=== PATIENT | male | born 1935 | race Caucasian/White ===

== ENCOUNTER 2017-01-20 10:38 | Outpatient (CLI) | payer MEDICARE, BC ==
--- NOTE | 2017-01-20 11:46 | RAD ---
CERVICAL SPINE 5 VIEWS: HISTORY: Chronic neck pain. 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 No fracture, subluxation, or bon y destruction is seen. If there is concern for radiculopathy or myelopathy, further evaluation with MRI should be performed . POS: SPEEDY
== END 2017-01-20 10:39 | disposition home or self-care (01) ==
LOC: MADRAD 10:38
PROVIDERS: ATTEND Family Medicine
DX: M54.2 Cervicalgia (principal); M47.812 Spondylosis without myelopathy or radiculopathy, cervical region
CPT/HCPCS: 72050

== ENCOUNTER 2017-01-30 10:32 | Outpatient (CLI) | payer MEDICARE, BC ==
[2017-01-30 11:42] LABS: #Basophils 0.2 thou/uL (0.0-0.2); #Eosinphils 0.2 thou/uL (0.0-0.7); #Lymphocytes 1.8 thou/uL (1.20-3.40); #Monocytes 0.6 thou/uL (0.11-0.59); #Neutrophils 5.2 thou/uL (1.40-6.50); %Basophils 2.5 % (0.0-1.0); %Eosinophils 2.9 % (0.0-10.0); %Lymphocytes 22.2 % (21.0-51.0); %Neutrophils 65.4 % (42.0-75.0); ALT (SGPT) 18 U/L (0-55); AST (SGOT) 21 U/L (5-34); Albumin 4.1 g/dL (3.4-4.8); Alkaline Phosphatase 86 U/L (40-150); Anion Gap 17 mmol/L (10-20); BUN (Urea Nitrogen) 34 mg/dL (8.4-25.7); Bilirubin, Total 0.3 mg/dL (0.2-1.2); Calc. Creatinine Clearance 0 mL/min (70-130); Calcium 9.9 mg/dL (7.8-10.44); Carbon Dioxide 24 mmol/L (23-31); Chloride 103 mmol/L (98-107); Estimated GFR-MDRD 34; Globulin 2.6 g/dL (2.4-3.5); Glucose 78 mg/dL (83-110); Hemoglobin 13.8 g/dL (14.0-18.0); Mean Corpuscular Hemoglobin 28.2 pg (27.0-31.0); Mean Corpuscular Volume 88.1 fl (80.0-94.0); Mean Platelet Volume 8.4 fL (7.4-10.4); Platelet Count 214 thou/uL (130-400); Potassium 4.5 mmol/L (3.5-5.1); Protein, Total 6.7 g/dL (5.8-8.1); RBC Distribution Width 15.1 % (11.5-14.5); Red Blood Cell (RBC) Count 4.89 mill/uL (4.70-6.10); Sodium 139 mmol/L (136-145)
[2017-01-30 12:03] LABS: Free T4 (Free Thyroxine) 0.96 ng/dL (0.70-1.48)
== END 2017-01-30 10:33 ==
LOC: MADLABBHPM 10:32
PROVIDERS: ATTEND Internal Medicine Cardiovascular Disease
DX: I10 Essential (primary) hypertension (principal)
CPT/HCPCS: 36415; 80053; 84439; 84443; 85025

== ENCOUNTER 2017-04-27 11:21 | Outpatient (CLI) | payer MEDICARE, BC ==
[2017-04-27 12:05] LABS: Anion Gap 16 mmol/L (10-20); BUN (Urea Nitrogen) 39 mg/dL (8.4-25.7); Calc. Creatinine Clearance 0 mL/min (70-130); Carbon Dioxide 23 mmol/L (23-31); Chloride 102 mmol/L (98-107); Estimated GFR-MDRD 34; Glucose 90 mg/dL (83-110); Potassium 4.7 mmol/L (3.5-5.1); Sodium 136 mmol/L (136-145)
== END 2017-04-27 11:22 | disposition home or self-care (01) ==
LOC: MADLAB 11:21
PROVIDERS: ATTEND Internal Medicine Nephrology
DX: I12.9 Hypertensive chronic kidney disease with stage 1 through stage 4 chronic kidney disease, or unspecified chronic kidney disease (principal); N18.3 Chronic kidney disease, stage 3 (moderate); Q61.9 Cystic kidney disease, unspecified
CPT/HCPCS: 36415; 80048

== ENCOUNTER 2018-03-19 11:32 | Outpatient (CLI) | payer MEDICARE, BC ==
[2018-03-19 12:57] LABS: Albumin 4.2 g/dL (3.4-4.8); Anion Gap 14 mmol/L (10-20); BUN (Urea Nitrogen) 28 mg/dL (8.4-25.7); Calc. Creatinine Clearance 0 mL/min (70-130); Calcium 9.9 mg/dL (7.8-10.44); Carbon Dioxide 24 mmol/L (23-31); Chloride 106 mmol/L (98-107); Estimated GFR-MDRD 28; Glucose 85 mg/dL (83-110); Phosphorus 3.2 mg/dL (2.3-4.7); Potassium 4.9 mmol/L (3.5-5.1); Sodium 139 mmol/L (136-145)
[2018-03-19 16:53] LABS: Creatinine, Urine 140.13 mg/dL (63-166)
== END 2018-03-19 11:33 | disposition home or self-care (01) ==
LOC: MADLAB 11:32
PROVIDERS: ATTEND Internal Medicine Nephrology
DX: I12.9 Hypertensive chronic kidney disease with stage 1 through stage 4 chronic kidney disease, or unspecified chronic kidney disease (principal); N18.3 Chronic kidney disease, stage 3 (moderate); N25.81 Secondary hyperparathyroidism of renal origin
CPT/HCPCS: 36415; 80048; 82040; 82570; 83970; 84100; 84156

== ENCOUNTER 2018-08-23 11:23 | Outpatient (CLI) | payer MEDICARE, BC ==
[2018-08-23 11:54] LABS: Anion Gap 14 mmol/L (10-20); BUN (Urea Nitrogen) 33 mg/dL (8.4-25.7); Calc. Creatinine Clearance 0 mL/min (70-130); Calcium 10.4 mg/dL (7.8-10.44); Carbon Dioxide 25 mmol/L (23-31); Chloride 104 mmol/L (98-107); Estimated GFR-MDRD 25; Glucose 100 mg/dL (83-110); Potassium 5.1 mmol/L (3.5-5.1); Sodium 138 mmol/L (136-145)
== END 2018-08-23 11:24 | disposition home or self-care (01) ==
LOC: MADLAB 11:23
PROVIDERS: ATTEND Internal Medicine Nephrology
DX: I12.9 Hypertensive chronic kidney disease with stage 1 through stage 4 chronic kidney disease, or unspecified chronic kidney disease (principal); N18.4 Chronic kidney disease, stage 4 (severe); N25.81 Secondary hyperparathyroidism of renal origin
CPT/HCPCS: 36415; 80048; 83970

== ENCOUNTER 2019-04-26 20:18 | Emergency (ER) | payer MEDICARE, BC ==
[2019-04-26] MEDS ORDERED: Fleet Enema 133 ML BOT ONE (20:40)
== END 2019-04-26 20:55 | disposition home or self-care (01) ==
LOC: MADERS 20:18
DX: K56.41 Fecal impaction (principal); K59.00 Constipation, unspecified; J44.9 Chronic obstructive pulmonary disease, unspecified; I10 Essential (primary) hypertension; E78.5 Hyperlipidemia, unspecified; F17.210 Nicotine dependence, cigarettes, uncomplicated; Z79.52 Long term (current) use of systemic steroids
CPT/HCPCS: 99283

== ENCOUNTER 2020-09-07 11:15 | Outpatient (CLI) | payer MEDICARE, BC ==
--- NOTE | 2020-09-07 11:50 | RAD ---
XR Ankle Rt 3 View STANDARD History: Ankle pain Comparison: None. Findings: Mild vascular calcifications. Moderate plantar heel spur. Moderate bimalleolar soft tissue swelling. No acute displaced fracture. Old osteochondral defect medial talar dome. Impression: 1. Bimalleolar soft tissue swelling without acute fracture or malalignment. 2. Punctate radiopacities projecting over the forefoot incompletely evaluated.
== END 2020-09-07 11:16 | disposition home or self-care (01) ==
LOC: MADRAD 11:15
PROVIDERS: ATTEND Family Medicine
DX: M79.604 Pain in right leg (principal); M79.89 Other specified soft tissue disorders

== ENCOUNTER 2021-01-03 09:40 | Emergency (ER) | payer MEDICARE, BC ==
[2021-01-03 10:33] LABS: #Basophils 0.1 thou/uL (0.0-0.2); #Eosinphils 0.2 thou/uL (0.0-0.7); #Lymphocytes 1.4 thou/uL (1.20-3.40); #Monocytes 0.4 thou/uL (0.11-0.59); %Basophils 1.6 % (0.0-1.0); %Eosinophils 3.2 % (0.0-10.0); %Lymphocytes 19.5 % (21.0-51.0); %Monocytes 5.9 % (0.0-10.0); %Neutrophils 69.8 % (42.0-75.0); Mean Corpuscular Hemoglobin 31.4 pg (27.0-31.0); Mean Corpuscular Volume 98.1 fL (78.0-98.0); Mean Platelet Volume 7.4 fL (7.4-10.4); Platelet Count 198 thou/uL (130-400); RBC Distribution Width 14.3 % (11.5-14.5); Red Blood Cell (RBC) Count 4.47 mill/uL (4.70-6.10); White Blood Cell (WBC) Count 7.2 thou/uL (4.8-10.8)
[2021-01-03 10:48] LABS: ALT (SGPT) 23 U/L (8-55); AST (SGOT) 27 U/L (5-34); Albumin 3.9 g/dL (3.4-4.8); Alkaline Phosphatase 68 U/L (40-110); Anion Gap 15 mmol/L (10-20); BUN (Urea Nitrogen) 29 mg/dL (8.4-25.7); Bilirubin, Total 0.5 mg/dL (0.2-1.2); Calc. Creatinine Clearance 0 mL/min (70-130); Calcium 9.8 mg/dL (7.8-10.44); Carbon Dioxide 22 mmol/L (23-31); Chloride 104 mmol/L (98-107); Globulin 2.6 g/dL (2.4-3.5); Glucose 92 mg/dL (83-110); Potassium 5.1 mmol/L (3.5-5.1); Protein, Total 6.5 g/dL (5.8-8.1); Sodium 136 mmol/L (136-145)
[2021-01-03 11:23] LABS: CKMB 7.3 ng/mL (0-6.6)
[2021-01-03] MEDS ORDERED: Furosemide 40 MG/4 ML VIAL ONE (12:13)
== END 2021-01-03 12:30 | disposition left against medical advice (07) ==
LOC: MADERS 09:40
DX: I11.0 Hypertensive heart disease with heart failure (principal); I50.9 Heart failure, unspecified; J44.9 Chronic obstructive pulmonary disease, unspecified; E78.5 Hyperlipidemia, unspecified; Z79.899 Other long term (current) drug therapy
CPT/HCPCS: 71045; 71250; 80053; 82553; 83880; 84484; 85025; 93005; 96374; J1940

== ENCOUNTER 2021-03-11 09:48 | Outpatient (CLI) | payer MEDICARE, BC ==
[2021-03-11 21:45] LABS: SARS-CoV-2 PCR by NAA Not Detected (NotDetected)
== END 2021-03-11 09:49 | disposition home or self-care (01) ==
LOC: MADLAB 09:48
PROVIDERS: ATTEND Internal Medicine
DX: R10.84 Generalized abdominal pain (principal); K59.09 Other constipation
CPT/HCPCS: 87635; U0003; U0005

== ENCOUNTER 2021-11-01 08:25 | Emergency (ER) | payer MEDICARE, BC ==
[2021-11-01] MEDS ORDERED: Magnesium Citrate 300 ML BOT ONE (09:57)
[2021-11-01] MEDS ORDERED: Ondansetron ODT 4 MG TAB ONE (09:57)
== END 2021-11-01 10:30 | disposition home or self-care (01) ==
LOC: MADERS 08:25
DX: K59.00 Constipation, unspecified (principal); K31.84 Gastroparesis; I10 Essential (primary) hypertension; E78.5 Hyperlipidemia, unspecified; J43.9 Emphysema, unspecified; Z87.891 Personal history of nicotine dependence; Z79.82 Long term (current) use of aspirin; Z79.01 Long term (current) use of anticoagulants; Z79.899 Other long term (current) drug therapy
CPT/HCPCS: 74022; Q0162

== ENCOUNTER 2021-12-27 15:48 | Inpatient (IN) | payer MEDICARE, BC ==
[2021-12-27] MEDS ORDERED: Albuterol Sulfate 1.25 MG/3 ML NEB NEB PRN (18:12)
[2021-12-27] MEDS ORDERED: Furosemide 20 MG TAB PO PRN (18:12)
[2021-12-27] MEDS ORDERED: Mometasone/Formoterol 200/5 60 PUFF INH SCH (19:00)
[2021-12-27] MEDS ORDERED: Melatonin 3 MG TAB PO SCH (21:00)
[2021-12-27] MEDS: Atorvastatin Calcium 40 MG TAB PO SCH (21:06)
[2021-12-27] MEDS: Tamsulosin HCl 0.4 MG CAP PO SCH (21:06)
[2021-12-27] MEDS: Nicotine 21 MG PATCH TD SCH (21:06)
[2021-12-27] MEDS: Mometasone/Formoterol 200/5 60 PUFF INH SCH (21:17)
[2021-12-28] MEDS: Acetaminophen 325 MG TAB PO PRN ×3 (01:17→22:22)
[2021-12-28 08:38] LABS: #Basophils 0.1 thou/uL (0.0-0.2); #Eosinphils 0.2 thou/uL (0.0-0.7); #Lymphocytes 1.2 thou/uL (1.20-3.40); #Monocytes 0.6 thou/uL (0.11-0.59); #Neutrophils 5.3 thou/uL (1.40-6.50); %Basophils 1.5 % (0.0-1.0); %Eosinophils 2.6 % (0.0-10.0); %Lymphocytes 16.5 % (21.0-51.0); %Neutrophils 71.4 % (42.0-75.0); Hemoglobin 12.5 g/dL (14.0-18.0); Mean Corpuscular HGB CONC 31.9 g/dL (32.0-36.0); Mean Corpuscular Hemoglobin 28.3 pg (27.0-31.0); Mean Corpuscular Volume 88.5 fL (78.0-98.0); Mean Platelet Volume 6.2 fL (7.4-10.4); Platelet Count 351 thou/uL (130-400); RBC Distribution Width 15.3 % (11.5-14.5); Red Blood Cell (RBC) Count 4.42 mill/uL (4.70-6.10); White Blood Cell (WBC) Count 7.4 thou/uL (4.8-10.8)
[2021-12-28 09:02] LABS: Anion Gap 16 mmol/L (10-20); BUN (Urea Nitrogen) 36 mg/dL (8.4-25.7); Calc. Creatinine Clearance 22 mL/min (70-130); Calcium 9.6 mg/dL (7.8-10.44); Carbon Dioxide 27 mmol/L (23-31); Chloride 101 mmol/L (98-107); Glucose 105 mg/dL (83-110); Potassium 4.1 mmol/L (3.5-5.1); Sodium 140 mmol/L (136-145)
[2021-12-28] MEDS: Mometasone/Formoterol 200/5 60 PUFF INH SCH ×2 (09:27→20:57)
[2021-12-28] MEDS: Rivaroxaban 15 MG TAB PO SCH (09:28)
[2021-12-28] MEDS: Finasteride 5 MG TAB PO SCH (09:28)
[2021-12-28] MEDS: Aspirin 81 mg Enteric Coated Tablet PO SCH (09:28)
[2021-12-28] MEDS ORDERED: Loratadine 10 MG TAB PO SCH (17:00)
[2021-12-28] MEDS ORDERED: Pramipexole Di-HCl 0.25 MG TAB PO SCH (17:30)
[2021-12-28] MEDS: Pramipexole Di-HCl 0.25 MG TAB PO SCH (20:53)
[2021-12-28] MEDS: Melatonin 3 MG TAB PO PRN (20:54)
[2021-12-28] MEDS: Atorvastatin Calcium 40 MG TAB PO SCH (20:55)
[2021-12-28] MEDS: Tamsulosin HCl 0.4 MG CAP PO SCH (20:55)
[2021-12-28] MEDS: traZODone HCl 50 MG TAB PO SCH (20:56)
[2021-12-28] MEDS: Nicotine 21 MG PATCH TD SCH (20:58)
[2021-12-29] MEDS: Mometasone/Formoterol 200/5 60 PUFF INH SCH ×2 (08:02→20:36)
[2021-12-29] MEDS: Rivaroxaban 15 MG TAB PO SCH (08:05)
[2021-12-29] MEDS: Finasteride 5 MG TAB PO SCH (08:05)
[2021-12-29] MEDS: Pramipexole Di-HCl 0.25 MG TAB PO SCH ×2 (08:05→20:36)
[2021-12-29] MEDS: Aspirin 81 mg Enteric Coated Tablet PO SCH (08:05)
[2021-12-29] MEDS ORDERED: Loratadine 10 MG TAB PO SCH (09:00)
[2021-12-29] MEDS: Nicotine 21 MG PATCH TD SCH (20:35)
[2021-12-29] MEDS: Melatonin 3 MG TAB PO PRN (20:36)
[2021-12-29] MEDS: traZODone HCl 50 MG TAB PO SCH (20:36)
[2021-12-29] MEDS: Tamsulosin HCl 0.4 MG CAP PO SCH (20:36)
[2021-12-29] MEDS: Atorvastatin Calcium 40 MG TAB PO SCH (20:36)
[2021-12-30] MEDS: Acetaminophen 325 MG TAB PO PRN (00:22)
[2021-12-30] MEDS: Mometasone/Formoterol 200/5 60 PUFF INH SCH ×2 (08:09→20:10)
[2021-12-30] MEDS: Aspirin 81 mg Enteric Coated Tablet PO SCH (08:10)
[2021-12-30] MEDS: Rivaroxaban 15 MG TAB PO SCH (08:10)
[2021-12-30] MEDS: Finasteride 5 MG TAB PO SCH (08:11)
[2021-12-30] MEDS: Loratadine 10 MG TAB PO SCH (08:11)
[2021-12-30] MEDS: Pramipexole Di-HCl 0.25 MG TAB PO SCH ×2 (08:11→20:11)
[2021-12-30] MEDS: Calcitriol 0.25 MCG CAP PO SCH (12:44)
[2021-12-30] MEDS: Atorvastatin Calcium 40 MG TAB PO SCH (20:10)
[2021-12-30] MEDS: Tamsulosin HCl 0.4 MG CAP PO SCH (20:10)
[2021-12-30] MEDS: Nicotine 21 MG PATCH TD SCH (20:11)
[2021-12-30] MEDS: traZODone HCl 50 MG TAB PO SCH (20:11)
[2021-12-31] MEDS: Finasteride 5 MG TAB PO SCH (08:38)
[2021-12-31] MEDS: Aspirin 81 mg Enteric Coated Tablet PO SCH (08:38)
[2021-12-31] MEDS: Rivaroxaban 15 MG TAB PO SCH (08:39)
[2021-12-31] MEDS: Mometasone/Formoterol 200/5 60 PUFF INH SCH ×2 (08:41→20:32)
[2021-12-31] MEDS: Acetaminophen 325 MG TAB PO PRN (11:39)
[2021-12-31] MEDS: Melatonin 3 MG TAB PO PRN (20:28)
[2021-12-31] MEDS: Tamsulosin HCl 0.4 MG CAP PO SCH (20:29)
[2021-12-31] MEDS: Pramipexole Di-HCl 0.25 MG TAB PO SCH (20:30)
[2021-12-31] MEDS: traZODone HCl 50 MG TAB PO SCH (20:31)
[2021-12-31] MEDS: Atorvastatin Calcium 40 MG TAB PO SCH (20:31)
[2021-12-31] MEDS: Nicotine 21 MG PATCH TD SCH (20:32)
[2022-01-01] MEDS: Acetaminophen 325 MG TAB PO PRN (08:45)
[2022-01-01] MEDS: Rivaroxaban 15 MG TAB PO SCH (08:47)
[2022-01-01] MEDS: Mometasone/Formoterol 200/5 60 PUFF INH SCH ×2 (08:47→21:25)
[2022-01-01] MEDS: Loratadine 10 MG TAB PO SCH (08:47)
[2022-01-01] MEDS: Finasteride 5 MG TAB PO SCH (08:47)
[2022-01-01] MEDS: Aspirin 81 mg Enteric Coated Tablet PO SCH (08:47)
[2022-01-01] MEDS: Pramipexole Di-HCl 0.25 MG TAB PO SCH (21:23)
[2022-01-01] MEDS: traZODone HCl 50 MG TAB PO SCH (21:24)
[2022-01-01] MEDS: Nicotine 21 MG PATCH TD SCH (21:25)
[2022-01-01] MEDS: Atorvastatin Calcium 40 MG TAB PO SCH (21:25)
[2022-01-01] MEDS: Tamsulosin HCl 0.4 MG CAP PO SCH (21:25)
[2022-01-01] MEDS: traZODone HCl 50 MG TAB PO PRN (22:43)
[2022-01-02] MEDS: Loratadine 10 MG TAB PO SCH (08:31)
[2022-01-02] MEDS: Aspirin 81 mg Enteric Coated Tablet PO SCH (08:31)
[2022-01-02] MEDS: Finasteride 5 MG TAB PO SCH (08:32)
[2022-01-02] MEDS: Rivaroxaban 15 MG TAB PO SCH (08:32)
[2022-01-02] MEDS: Mometasone/Formoterol 200/5 60 PUFF INH SCH ×2 (08:34→21:26)
[2022-01-02 15:40] LABS: SARS-CoV-2 PCR by NAA Not Detected (NotDetected)
[2022-01-02] MEDS: Tamsulosin HCl 0.4 MG CAP PO SCH (21:24)
[2022-01-02] MEDS: traZODone HCl 50 MG TAB PO SCH (21:24)
[2022-01-02] MEDS: Atorvastatin Calcium 40 MG TAB PO SCH (21:24)
[2022-01-02] MEDS: Pramipexole Di-HCl 0.25 MG TAB PO SCH (21:24)
[2022-01-02] MEDS: Nicotine 21 MG PATCH TD SCH (21:26)
[2022-01-02] MEDS: Melatonin 3 MG TAB PO PRN (21:34)
[2022-01-02] MEDS: Acetaminophen 325 MG TAB PO PRN (23:27)
[2022-01-03] MEDS: Mometasone/Formoterol 200/5 60 PUFF INH SCH ×2 (08:09→21:35)
[2022-01-03] MEDS: Rivaroxaban 15 MG TAB PO SCH (08:10)
[2022-01-03] MEDS: Finasteride 5 MG TAB PO SCH (08:10)
[2022-01-03] MEDS: Aspirin 81 mg Enteric Coated Tablet PO SCH (08:10)
[2022-01-03] MEDS: Loratadine 10 MG TAB PO SCH (08:10)
[2022-01-03] MEDS: Calcitriol 0.25 MCG CAP PO SCH (11:55)
[2022-01-03] MEDS: Acetaminophen 325 MG TAB PO PRN ×2 (14:14→23:27)
[2022-01-03] MEDS: Pramipexole Di-HCl 0.25 MG TAB PO SCH (21:33)
[2022-01-03] MEDS: Tamsulosin HCl 0.4 MG CAP PO SCH (21:34)
[2022-01-03] MEDS: Nicotine 21 MG PATCH TD SCH (21:34)
[2022-01-03] MEDS: Atorvastatin Calcium 40 MG TAB PO SCH (21:34)
[2022-01-03] MEDS: traZODone HCl 50 MG TAB PO SCH (21:34)
[2022-01-03] MEDS: traZODone HCl 50 MG TAB PO PRN (23:28)
[2022-01-04 05:24] LABS: Hemoglobin 11.3 g/dL (14.0-18.0); Mean Corpuscular HGB CONC 31.8 g/dL (32.0-36.0); Mean Corpuscular Hemoglobin 28.1 pg (27.0-31.0); Mean Corpuscular Volume 88.4 fL (78.0-98.0); Mean Platelet Volume 5.9 fL (7.4-10.4); Platelet Count 388 thou/uL (130-400); RBC Distribution Width 16.2 % (11.5-14.5); Red Blood Cell (RBC) Count 4.02 mill/uL (4.70-6.10); White Blood Cell (WBC) Count 8.4 thou/uL (4.8-10.8)
[2022-01-04] MEDS: Finasteride 5 MG TAB PO SCH (08:59)
[2022-01-04] MEDS: Acetaminophen 325 MG TAB PO PRN ×2 (08:59→23:48)
[2022-01-04] MEDS: Mometasone/Formoterol 200/5 60 PUFF INH SCH ×2 (09:00→20:51)
[2022-01-04] MEDS: Rivaroxaban 15 MG TAB PO SCH (09:00)
[2022-01-04] MEDS: Aspirin 81 mg Enteric Coated Tablet PO SCH (09:00)
[2022-01-04] MEDS: Melatonin 3 MG TAB PO PRN (20:47)
[2022-01-04] MEDS: Atorvastatin Calcium 40 MG TAB PO SCH (20:47)
[2022-01-04] MEDS: Pramipexole Di-HCl 0.25 MG TAB PO SCH (20:47)
[2022-01-04] MEDS: traZODone HCl 50 MG TAB PO SCH (20:48)
[2022-01-04] MEDS: Tamsulosin HCl 0.4 MG CAP PO SCH (20:48)
[2022-01-04] MEDS: FLUOCINOLONE 0.01% R EAR SCH (20:53)
[2022-01-04] MEDS: Nicotine 21 MG PATCH TD SCH (21:29)
[2022-01-05] MEDS: Loratadine 10 MG TAB PO SCH (08:31)
[2022-01-05] MEDS: Finasteride 5 MG TAB PO SCH (08:31)
[2022-01-05] MEDS: Rivaroxaban 15 MG TAB PO SCH (08:31)
[2022-01-05] MEDS: Aspirin 81 mg Enteric Coated Tablet PO SCH (08:31)
[2022-01-05] MEDS: FLUOCINOLONE 0.01% R EAR SCH ×2 (08:32→20:14)
[2022-01-05] MEDS: Mometasone/Formoterol 200/5 60 PUFF INH SCH ×2 (08:32→20:10)
[2022-01-05] MEDS: Acetaminophen 325 MG TAB PO PRN (08:41)
[2022-01-05] MEDS: Pramipexole Di-HCl 0.25 MG TAB PO SCH (20:11)
[2022-01-05] MEDS: traZODone HCl 50 MG TAB PO SCH (20:12)
[2022-01-05] MEDS: Nicotine 21 MG PATCH TD SCH (20:13)
[2022-01-05] MEDS: Tamsulosin HCl 0.4 MG CAP PO SCH (20:20)
[2022-01-06 05:29] LABS: #Basophils 0.1 thou/uL (0.0-0.2); #Eosinphils 0.1 thou/uL (0.0-0.7); #Lymphocytes 1.4 thou/uL (1.20-3.40); #Monocytes 0.5 thou/uL (0.11-0.59); #Neutrophils 5.9 thou/uL (1.40-6.50); %Basophils 1.3 % (0.0-1.0); %Eosinophils 1.7 % (0.0-10.0); %Lymphocytes 17.4 % (21.0-51.0); %Monocytes 5.7 % (0.0-10.0); %Neutrophils 73.8 % (42.0-75.0); Hemoglobin 11.9 g/dL (14.0-18.0); Mean Corpuscular HGB CONC 32.7 g/dL (32.0-36.0); Mean Corpuscular Hemoglobin 28.6 pg (27.0-31.0); Mean Corpuscular Volume 87.5 fL (78.0-98.0); Platelet Count 393 thou/uL (130-400); RBC Distribution Width 15.7 % (11.5-14.5); Red Blood Cell (RBC) Count 4.16 mill/uL (4.70-6.10)
[2022-01-06 05:42] LABS: Anion Gap 13 mmol/L (10-20); BUN (Urea Nitrogen) 20 mg/dL (8.4-25.7); Calc. Creatinine Clearance 28 mL/min (70-130); Calcium 9.6 mg/dL (7.8-10.44); Carbon Dioxide 22 mmol/L (23-31); Chloride 105 mmol/L (98-107); Glucose 89 mg/dL (83-110); Potassium 4.9 mmol/L (3.5-5.1); Sodium 135 mmol/L (136-145)
[2022-01-06] MEDS: Mometasone/Formoterol 200/5 60 PUFF INH SCH ×2 (08:13→20:48)
[2022-01-06] MEDS: Finasteride 5 MG TAB PO SCH (08:14)
[2022-01-06] MEDS: Rivaroxaban 15 MG TAB PO SCH (08:14)
[2022-01-06] MEDS: Aspirin 81 mg Enteric Coated Tablet PO SCH (08:14)
[2022-01-06] MEDS: FLUOCINOLONE 0.01% R EAR SCH ×2 (08:15→20:50)
[2022-01-06] MEDS: Calcitriol 0.25 MCG CAP PO SCH (13:12)
[2022-01-06] MEDS ORDERED: Fluticasone Propionate Nasal Spray 16 gm Bottle NASAL SCH (19:30)
[2022-01-06] MEDS: Pramipexole Di-HCl 0.25 MG TAB PO SCH (20:48)
[2022-01-06] MEDS: Nicotine 21 MG PATCH TD SCH (20:49)
[2022-01-06] MEDS: Tamsulosin HCl 0.4 MG CAP PO SCH (20:49)
[2022-01-06] MEDS: Atorvastatin Calcium 40 MG TAB PO SCH (20:49)
[2022-01-06] MEDS: traZODone HCl 50 MG TAB PO SCH (20:49)
[2022-01-06] MEDS: Acetaminophen 325 MG TAB PO PRN (22:53)
[2022-01-07] MEDS: Melatonin 3 MG TAB PO PRN (00:06)
[2022-01-07] MEDS: Acetaminophen 325 MG TAB PO PRN (08:27)
[2022-01-07] MEDS: Finasteride 5 MG TAB PO SCH (08:28)
[2022-01-07] MEDS: Rivaroxaban 15 MG TAB PO SCH (08:28)
[2022-01-07] MEDS: Fluticasone Propionate Nasal Spray 16 gm Bottle NASAL SCH ×2 (08:28→20:41)
[2022-01-07] MEDS: Loratadine 10 MG TAB PO SCH (08:28)
[2022-01-07] MEDS: Aspirin 81 mg Enteric Coated Tablet PO SCH (08:28)
[2022-01-07] MEDS: Mometasone/Formoterol 200/5 60 PUFF INH SCH ×2 (08:29→20:35)
[2022-01-07] MEDS: FLUOCINOLONE 0.01% R EAR SCH ×2 (08:29→20:44)
[2022-01-07] MEDS: Pramipexole Di-HCl 0.25 MG TAB PO SCH (20:34)
[2022-01-07] MEDS: Tamsulosin HCl 0.4 MG CAP PO SCH (20:36)
[2022-01-07] MEDS: Atorvastatin Calcium 40 MG TAB PO SCH (20:36)
[2022-01-07] MEDS: traZODone HCl 50 MG TAB PO SCH (20:36)
[2022-01-07] MEDS: Nicotine 21 MG PATCH TD SCH (20:44)
[2022-01-08] MEDS: Melatonin 3 MG TAB PO PRN (01:53)
[2022-01-08] MEDS: Acetaminophen 325 MG TAB PO PRN ×3 (01:53→22:37)
[2022-01-08] MEDS: Fluticasone Propionate Nasal Spray 16 gm Bottle NASAL SCH (08:29)
[2022-01-08] MEDS: Rivaroxaban 15 MG TAB PO SCH (08:29)
[2022-01-08] MEDS: Finasteride 5 MG TAB PO SCH (08:29)
[2022-01-08] MEDS: Aspirin 81 mg Enteric Coated Tablet PO SCH (08:29)
[2022-01-08] MEDS: FLUOCINOLONE 0.01% R EAR SCH ×2 (08:30→23:39)
[2022-01-08] MEDS: Mometasone/Formoterol 200/5 60 PUFF INH SCH ×2 (08:31→22:31)
[2022-01-08] MEDS: Nicotine 21 MG PATCH TD SCH ×3 (22:26→22:31)
[2022-01-08] MEDS: Pramipexole Di-HCl 0.25 MG TAB PO SCH (22:26)
[2022-01-08] MEDS: Atorvastatin Calcium 40 MG TAB PO SCH (22:26)
[2022-01-08] MEDS: traZODone HCl 50 MG TAB PO SCH (22:26)
[2022-01-08] MEDS: Tamsulosin HCl 0.4 MG CAP PO SCH (22:27)
[2022-01-09] MEDS: Acetaminophen 325 MG TAB PO PRN ×2 (06:13→14:02)
[2022-01-09] MEDS ORDERED: Pramipexole Di-HCl 0.25 MG TAB PO SCH (08:45)
[2022-01-09] MEDS: Rivaroxaban 15 MG TAB PO SCH (09:20)
[2022-01-09] MEDS: Finasteride 5 MG TAB PO SCH (09:20)
[2022-01-09] MEDS: Aspirin 81 mg Enteric Coated Tablet PO SCH (09:20)
[2022-01-09] MEDS: Mometasone/Formoterol 200/5 60 PUFF INH SCH ×2 (09:21→20:23)
[2022-01-09] MEDS: Loratadine 10 MG TAB PO SCH (09:21)
[2022-01-09] MEDS: Fluticasone Propionate Nasal Spray 16 gm Bottle NASAL SCH (09:21)
[2022-01-09] MEDS: FLUOCINOLONE 0.01% R EAR SCH ×2 (09:28→20:23)
[2022-01-09] MEDS: Pramipexole Di-HCl 0.25 MG TAB PO SCH (17:54)
[2022-01-09] MEDS: traZODone HCl 50 MG TAB PO SCH (20:22)
[2022-01-09] MEDS: Atorvastatin Calcium 40 MG TAB PO SCH (20:22)
[2022-01-09] MEDS: Nicotine 21 MG PATCH TD SCH (20:22)
[2022-01-09] MEDS: Tamsulosin HCl 0.4 MG CAP PO SCH (20:23)
[2022-01-09 23:39] LABS: SARS-CoV-2 PCR by NAA Not Detected (NotDetected)
[2022-01-10] MEDS: Mometasone/Formoterol 200/5 60 PUFF INH SCH ×2 (10:26→20:46)
[2022-01-10] MEDS: Rivaroxaban 15 MG TAB PO SCH (10:27)
[2022-01-10] MEDS: Finasteride 5 MG TAB PO SCH (10:27)
[2022-01-10] MEDS: Aspirin 81 mg Enteric Coated Tablet PO SCH (10:27)
[2022-01-10] MEDS: Fluticasone Propionate Nasal Spray 16 gm Bottle NASAL SCH (10:27)
[2022-01-10] MEDS: FLUOCINOLONE 0.01% R EAR SCH ×2 (10:28→20:45)
[2022-01-10] MEDS: Calcitriol 0.25 MCG CAP PO SCH (12:08)
[2022-01-10] MEDS: Pramipexole Di-HCl 0.25 MG TAB PO PRN (14:00)
[2022-01-10] MEDS: Pramipexole Di-HCl 0.25 MG TAB PO SCH (20:41)
[2022-01-10] MEDS: Atorvastatin Calcium 40 MG TAB PO SCH (20:42)
[2022-01-10] MEDS: Tamsulosin HCl 0.4 MG CAP PO SCH (20:42)
[2022-01-10] MEDS: traZODone HCl 50 MG TAB PO SCH (20:43)
[2022-01-10] MEDS: Nicotine 21 MG PATCH TD SCH (20:46)
[2022-01-10] MEDS: traZODone HCl 50 MG TAB PO PRN (21:20)
[2022-01-11] MEDS: Acetaminophen 325 MG TAB PO PRN ×2 (10:07→16:24)
[2022-01-11] MEDS: Rivaroxaban 15 MG TAB PO SCH (10:08)
[2022-01-11] MEDS: Finasteride 5 MG TAB PO SCH (10:08)
[2022-01-11] MEDS: Fluticasone Propionate Nasal Spray 16 gm Bottle NASAL SCH (10:09)
[2022-01-11] MEDS: Mometasone/Formoterol 200/5 60 PUFF INH SCH ×2 (10:09→20:37)
[2022-01-11] MEDS: Loratadine 10 MG TAB PO SCH (10:09)
[2022-01-11] MEDS: Aspirin 81 mg Enteric Coated Tablet PO SCH (10:09)
[2022-01-11] MEDS: FLUOCINOLONE 0.01% R EAR SCH ×2 (10:10→20:41)
[2022-01-11] MEDS: Pramipexole Di-HCl 0.25 MG TAB PO SCH (20:38)
[2022-01-11] MEDS: Tamsulosin HCl 0.4 MG CAP PO SCH (20:39)
[2022-01-11] MEDS: Atorvastatin Calcium 40 MG TAB PO SCH (20:39)
[2022-01-11] MEDS: traZODone HCl 50 MG TAB PO SCH (20:40)
[2022-01-11] MEDS: Nicotine 21 MG PATCH TD SCH (20:41)
[2022-01-12] MEDS: Fluticasone Propionate Nasal Spray 16 gm Bottle NASAL SCH (08:34)
[2022-01-12] MEDS: Mometasone/Formoterol 200/5 60 PUFF INH SCH ×2 (08:34→20:10)
[2022-01-12] MEDS: Loratadine 10 MG TAB PO SCH (08:36)
[2022-01-12] MEDS: Finasteride 5 MG TAB PO SCH (08:37)
[2022-01-12] MEDS: Rivaroxaban 15 MG TAB PO SCH (08:37)
[2022-01-12] MEDS: FLUOCINOLONE 0.01% R EAR SCH ×2 (08:37→20:12)
[2022-01-12] MEDS: Aspirin 81 mg Enteric Coated Tablet PO SCH (08:37)
[2022-01-12] MEDS: Pramipexole Di-HCl 0.25 MG TAB PO PRN (10:25)
[2022-01-12] MEDS: Mag-Al Plus 1200 MG/1200 MG/120 MG/30 ML UDCUP PO PRN (16:37)
[2022-01-12] MEDS: Pramipexole Di-HCl 0.25 MG TAB PO SCH (20:10)
[2022-01-12] MEDS: Atorvastatin Calcium 40 MG TAB PO SCH (20:11)
[2022-01-12] MEDS: Acetaminophen 325 MG TAB PO PRN (20:11)
[2022-01-12] MEDS: traZODone HCl 50 MG TAB PO SCH (20:11)
[2022-01-12] MEDS: Tamsulosin HCl 0.4 MG CAP PO SCH (20:12)
[2022-01-12] MEDS: Melatonin 3 MG TAB PO PRN (20:12)
[2022-01-12] MEDS: Nicotine 21 MG PATCH TD SCH (20:13)
[2022-01-13] MEDS: Fluticasone Propionate Nasal Spray 16 gm Bottle NASAL SCH (08:27)
[2022-01-13] MEDS: Loratadine 10 MG TAB PO SCH (08:27)
[2022-01-13] MEDS: Aspirin 81 mg Enteric Coated Tablet PO SCH (08:27)
[2022-01-13] MEDS: Rivaroxaban 15 MG TAB PO SCH (08:27)
[2022-01-13] MEDS: Finasteride 5 MG TAB PO SCH (08:27)
[2022-01-13] MEDS: Mometasone/Formoterol 200/5 60 PUFF INH SCH ×2 (08:28→20:45)
[2022-01-13] MEDS: FLUOCINOLONE 0.01% R EAR SCH (08:29)
[2022-01-13] MEDS: Calcitriol 0.25 MCG CAP PO SCH (12:17)
[2022-01-13] MEDS: Mag-Al Plus 1200 MG/1200 MG/120 MG/30 ML UDCUP PO PRN (15:51)
[2022-01-13] MEDS: Acetaminophen 325 MG TAB PO PRN (16:57)
[2022-01-13] MEDS ORDERED: Bisacodyl 10 MG SUPP PR PRN (17:06)
[2022-01-13] MEDS ORDERED: Calcitriol 0.25 MCG CAP PO SCH (18:00)
[2022-01-13] MEDS: traZODone HCl 50 MG TAB PO SCH (20:43)
[2022-01-13] MEDS: Tamsulosin HCl 0.4 MG CAP PO SCH (20:43)
[2022-01-13] MEDS: Senokot S 8.6-50 MG TAB PO SCH (20:43)
[2022-01-13] MEDS: Nicotine 21 MG PATCH TD SCH (20:44)
[2022-01-13] MEDS: Pramipexole Di-HCl 0.25 MG TAB PO SCH (20:44)
[2022-01-13] MEDS: Atorvastatin Calcium 40 MG TAB PO SCH (20:44)
[2022-01-13] MEDS: Melatonin 3 MG TAB PO PRN (20:51)
[2022-01-13 22:06] VITALS: BMI 21.2
[2022-01-14] MEDS ORDERED: Acetaminophen 325 MG TAB ONE (00:13)
[2022-01-14] MEDS: Acetaminophen 325 MG TAB PO PRN (00:15)
[2022-01-14] MEDS: Rivaroxaban 15 MG TAB PO SCH (08:58)
[2022-01-14] MEDS: Pramipexole Di-HCl 0.25 MG TAB PO SCH ×2 (08:59→20:29)
[2022-01-14] MEDS: Finasteride 5 MG TAB PO SCH (08:59)
[2022-01-14] MEDS: Senokot S 8.6-50 MG TAB PO SCH ×2 (08:59→20:31)
[2022-01-14] MEDS: Aspirin 81 mg Enteric Coated Tablet PO SCH (08:59)
[2022-01-14] MEDS: Mometasone/Formoterol 200/5 60 PUFF INH SCH ×2 (09:00→20:31)
[2022-01-14] MEDS: Fluticasone Propionate Nasal Spray 16 gm Bottle NASAL SCH (09:25)
[2022-01-14] MEDS: traMADol HCl 50 MG TAB PO PRN (17:27)
[2022-01-14] MEDS: Tamsulosin HCl 0.4 MG CAP PO SCH (20:29)
[2022-01-14] MEDS: Atorvastatin Calcium 40 MG TAB PO SCH (20:30)
[2022-01-14] MEDS: traZODone HCl 50 MG TAB PO SCH (20:30)
[2022-01-14] MEDS: Nicotine 21 MG PATCH TD SCH (20:31)
[2022-01-15] MEDS: Aspirin 81 mg Enteric Coated Tablet PO SCH (08:44)
[2022-01-15] MEDS: Pramipexole Di-HCl 0.25 MG TAB PO SCH ×2 (08:44→20:00)
[2022-01-15] MEDS: Loratadine 10 MG TAB PO SCH (08:44)
[2022-01-15] MEDS: Senokot S 8.6-50 MG TAB PO SCH ×2 (08:44→20:00)
[2022-01-15] MEDS: Rivaroxaban 15 MG TAB PO SCH (08:44)
[2022-01-15] MEDS: Finasteride 5 MG TAB PO SCH (08:44)
[2022-01-15] MEDS: Acetaminophen 325 MG TAB PO PRN ×2 (08:44→23:24)
[2022-01-15] MEDS: Fluticasone Propionate Nasal Spray 16 gm Bottle NASAL SCH (08:45)
[2022-01-15] MEDS: Mometasone/Formoterol 200/5 60 PUFF INH SCH ×2 (08:45→23:00)
[2022-01-15] MEDS ORDERED: Fleet Enema 133 ML BOT PR PRN (19:37)
[2022-01-15] MEDS: Nicotine 21 MG PATCH TD SCH (19:59)
[2022-01-15] MEDS: traZODone HCl 50 MG TAB PO SCH (20:00)
[2022-01-15] MEDS: Atorvastatin Calcium 40 MG TAB PO SCH (20:00)
[2022-01-15] MEDS: Tamsulosin HCl 0.4 MG CAP PO SCH (20:00)
[2022-01-15] MEDS: Milk Of Magnesia 30 ML UDCUP PO PRN (20:01)
[2022-01-16] MEDS: Senokot S 8.6-50 MG TAB PO SCH ×2 (08:13→21:16)
[2022-01-16] MEDS: Pramipexole Di-HCl 0.25 MG TAB PO SCH ×2 (08:13→21:16)
[2022-01-16] MEDS: Finasteride 5 MG TAB PO SCH (08:13)
[2022-01-16] MEDS: Aspirin 81 mg Enteric Coated Tablet PO SCH (08:13)
[2022-01-16] MEDS: Rivaroxaban 15 MG TAB PO SCH (08:13)
[2022-01-16] MEDS: Fluticasone Propionate Nasal Spray 16 gm Bottle NASAL SCH (08:14)
[2022-01-16] MEDS: Mometasone/Formoterol 200/5 60 PUFF INH SCH ×2 (08:14→21:16)
[2022-01-16 11:55] LABS: SARS-CoV-2 PCR by NAA Not Detected (NotDetected)
[2022-01-16 12:04] LABS: #Basophils 0.1 thou/uL (0.0-0.2); #Eosinphils 0.2 thou/uL (0.0-0.7); #Lymphocytes 1.1 thou/uL (1.20-3.40); #Monocytes 0.6 thou/uL (0.11-0.59); #Neutrophils 6.4 thou/uL (1.40-6.50); %Basophils 1.7 % (0.0-1.0); %Eosinophils 2.2 % (0.0-10.0); %Lymphocytes 12.7 % (21.0-51.0); %Neutrophils 76.3 % (42.0-75.0); Hemoglobin 11.6 g/dL (14.0-18.0); Mean Corpuscular HGB CONC 31.1 g/dL (32.0-36.0); Mean Corpuscular Hemoglobin 27.6 pg (27.0-31.0); Mean Corpuscular Volume 88.6 fL (78.0-98.0); Platelet Count 341 thou/uL (130-400); RBC Distribution Width 16.2 % (11.5-14.5); Red Blood Cell (RBC) Count 4.21 mill/uL (4.70-6.10); White Blood Cell (WBC) Count 8.4 thou/uL (4.8-10.8)
[2022-01-16 12:20] LABS: Anion Gap 13 mmol/L (10-20); BUN (Urea Nitrogen) 20 mg/dL (8.4-25.7); Calc. Creatinine Clearance 31 mL/min (70-130); Calcium 10.3 mg/dL (7.8-10.44); Carbon Dioxide 24 mmol/L (23-31); Chloride 101 mmol/L (98-107); Glucose 92 mg/dL (83-110); Potassium 5.1 mmol/L (3.5-5.1); Sodium 133 mmol/L (136-145)
[2022-01-16] MEDS: Atorvastatin Calcium 40 MG TAB PO SCH (21:15)
[2022-01-16] MEDS: traZODone HCl 50 MG TAB PO SCH (21:16)
[2022-01-16] MEDS: Nicotine 21 MG PATCH TD SCH (21:16)
[2022-01-16] MEDS: Tamsulosin HCl 0.4 MG CAP PO SCH (21:16)
[2022-01-16] MEDS: Milk Of Magnesia 30 ML UDCUP PO PRN (21:21)
[2022-01-17] MEDS: traMADol HCl 50 MG TAB PO PRN (00:07)
[2022-01-17] MEDS: Mometasone/Formoterol 200/5 60 PUFF INH SCH (08:26)
[2022-01-17] MEDS: Fluticasone Propionate Nasal Spray 16 gm Bottle NASAL SCH (08:28)
[2022-01-17] MEDS: Aspirin 81 mg Enteric Coated Tablet PO SCH (08:29)
[2022-01-17] MEDS: Rivaroxaban 15 MG TAB PO SCH (08:29)
[2022-01-17] MEDS: Finasteride 5 MG TAB PO SCH (08:29)
[2022-01-17] MEDS: Pramipexole Di-HCl 0.25 MG TAB PO SCH (08:29)
[2022-01-17] MEDS: Loratadine 10 MG TAB PO SCH (08:29)
[2022-01-17] MEDS: Senokot S 8.6-50 MG TAB PO SCH (08:29)
[2022-01-17 08:51] VITALS: BP 115/62; TEMP 98.1
[2022-01-17] MEDS ORDERED: Calcitriol 0.25 MCG CAP PO SCH (09:00)
[2022-01-17] MEDS: Acetaminophen 325 MG TAB PO PRN (10:37)
[2022-01-17] MEDS ORDERED: Furosemide 20 MG TAB PO SCH (14:00)
[2022-01-21] MEDS ORDERED: Furosemide 20 MG TAB PO SCH (09:00)
== END 2022-01-17 15:10 | disposition home or self-care (01) | DRG 948 ==
LOC: MADMS 17:06
PROVIDERS: ADMIT Family Medicine; ATTEND Family Medicine
DX: R53.81 Other malaise (principal); L97.929 Non-pressure chronic ulcer of unspecified part of left lower leg with unspecified severity; L97.919 Non-pressure chronic ulcer of unspecified part of right lower leg with unspecified severity; I13.0 Hypertensive heart and chronic kidney disease with heart failure and stage 1 through stage 4 chronic kidney disease, or unspecified chronic kidney disease; N17.9 Acute kidney failure, unspecified; J96.11 Chronic respiratory failure with hypoxia; I50.32 Chronic diastolic (congestive) heart failure; R53.1 Weakness; I73.9 Peripheral vascular disease, unspecified; I48.0 Paroxysmal atrial fibrillation; Z66 Do not resuscitate; I25.10 Atherosclerotic heart disease of native coronary artery without angina pectoris; K21.9 Gastro-esophageal reflux disease without esophagitis; E78.5 Hyperlipidemia, unspecified; J44.9 Chronic obstructive pulmonary disease, unspecified; I35.0 Nonrheumatic aortic (valve) stenosis; G47.00 Insomnia, unspecified; Z20.822 Contact with and (suspected) exposure to COVID-19; D63.1 Anemia in chronic kidney disease; N18.30 Chronic kidney disease, stage 3 unspecified; L89.152 Pressure ulcer of sacral region, stage 2; K59.00 Constipation, unspecified; G25.81 Restless legs syndrome; Z87.891 Personal history of nicotine dependence; Z79.01 Long term (current) use of anticoagulants; Z99.81 Dependence on supplemental oxygen; Z88.8 Allergy status to other drugs, medicaments and biological substances; Z88.2 Allergy status to sulfonamides; Z86.73 Personal history of transient ischemic attack (TIA), and cerebral infarction without residual deficits; Z90.49 Acquired absence of other specified parts of digestive tract
CPT/HCPCS: 36415; 71046; 80048; 85025; 85027; 94664; 97602; J7620; U0003; U0005